=== PATIENT | female | born 1965 | race African-American/Black ===

== ENCOUNTER 2021-09-21 12:56 | Inpatient (IN) | payer MEDICAID ==
[~2021-09-21] VITALS: Ht 170.2 cm; Wt 64.9 kg
[2021-09-21] VITALS (27 sets, daily range): BP systolic 99–147; BP diastolic 36–83
[2021-09-21] MEDS ORDERED: KETOROLAC 15MG/ML VIAL IV ONE (13:15)
[2021-09-21] MEDS ORDERED: SODIUM CHLORIDE 0.9% 500 ML IV ONE (13:15)
[2021-09-21 13:43] LABS: BASOPHILS % 0.3 % (0.0-2.0); EOSINOPHILS % 0.9 % (0.0-5.0); HEMATOCRIT. 37.6 % (36.0-48.0); HEMOGLOBIN. 12.9 g/dL (12.0-16.0); LYMPHOCYTES % 22.5 % (20.0-50.0); MEAN CORPUSCULAR HEMOGLOBIN 29.6 pg (28.0-32.0); MEAN CORPUSCULAR VOLUME 86.3 fL (81.0-99.0); MEAN PLATELET VOLUME 8.5 fl (7.4-10.4); MONOCYTES % 4.3 % (2.0-8.0); PLATELET 179 x1000/uL (130-400); RED BLOOD CELL COUNT 4.36 mill/uL (4.2-5.4); RED CELL DISTRIBUTION WIDTH 13.7 % (11.6-14.6)
[2021-09-21 13:49] LABS: CHLORIDE 109 mEq/L (98-107)
[2021-09-21] MEDS ORDERED: NICARDIPINE 100 MG in SODIUM CHLORIDE 0.9% 60 ML IV PRN ×2 (14:45→15:00)
[2021-09-21] MEDS ORDERED: LEVETIRACETAM 500MG PREMIX 100 ML IV NR (15:00)
[2021-09-21] MEDS ORDERED: IPRATROPIUM/ALBUTEROL 0.5-3(2.5)MG/3ML NEB NEB PRN (16:30)
[2021-09-21] MEDS ORDERED: NITROGLYCERIN 0.4MG TABLET SL SL PRN (16:30)
[2021-09-21] MEDS ORDERED: ONDANSETRON HCL 4MG/2ML INJ IV PRN (16:30)
[2021-09-21] MEDS ORDERED: ACETAMINOPHEN 325MG TABLET PO PRN (16:30)
[2021-09-21] MEDS: DEXT 5%/LACTATED RINGERS 1,000 ML IV SCH (18:12)
[2021-09-21] MEDS ORDERED: IOHEXOL-350 100 ML BOTTLE ONE (19:48)
[2021-09-21] MEDS ORDERED: NALOXONE HCL 0.4MG/ML VIAL IV PRN (20:00)
[2021-09-21] MEDS: MORPHINE SULFATE 2 MG/ML CPJ (NOT FOR IM USE) IV PRN (20:17)
[2021-09-21] MEDS: LEVETIRACETAM 250 MG in SODIUM CHLORIDE 0.9% 100 ML IV SCH (22:44)
[2021-09-21 23:24] LABS: CREATINE KINASE 35 IU/L (26-192)
[2021-09-21 23:25] LABS: CREATINE KINASE MB FRACTION < 1.0 ng/mL (0.5-3.6)
[2021-09-22] VITALS (64 sets, daily range): BP systolic 96–166; BP diastolic 49–82
[2021-09-22 05:49] LABS: CHLORIDE 110 mEq/L (98-107)
[2021-09-22 05:52] LABS: BASOPHILS % 0.4 % (0.0-2.0); EOSINOPHILS % 1.7 % (0.0-5.0); HEMOGLOBIN. 12.4 g/dL (12.0-16.0); LYMPHOCYTES % 30.7 % (20.0-50.0); MEAN CORPUSCULAR HEMOGLOBIN 29.5 pg (28.0-32.0); MEAN CORPUSCULAR VOLUME 85.2 fL (81.0-99.0); MONOCYTES % 6.4 % (2.0-8.0); NEUTROPHILS % 60.8 % (40.0-76.0); PLATELET 179 x1000/uL (130-400); RED BLOOD CELL COUNT 4.22 mill/uL (4.2-5.4); RED CELL DISTRIBUTION WIDTH 13.7 % (11.6-14.6)
[2021-09-22 05:59] LABS: CREATINE KINASE 30 IU/L (26-192)
[2021-09-22 06:00] LABS: CREATINE KINASE MB FRACTION < 1.0 ng/mL (0.5-3.6)
[2021-09-22 06:03] LABS: PHOSPHORUS 3.9 mg/dL (2.5-4.9)
[2021-09-22] MEDS: DEXT 5%/LACTATED RINGERS 1,000 ML IV SCH ×2 (08:59→19:30)
[2021-09-22] MEDS: PANTOPRAZOLE SODIUM 40 MG/VIAL IV SCH (08:59)
[2021-09-22] MEDS: ACETAMINOPHEN 325MG TABLET PO PRN (09:00)
[2021-09-22] MEDS: LEVETIRACETAM 250 MG in SODIUM CHLORIDE 0.9% 100 ML IV SCH ×2 (10:40→23:06)
[2021-09-22] MEDS ORDERED: CLONIDINE 0.1MG TABLET PO PRN (12:00)
[2021-09-22] MEDS ORDERED: GADOTERATE MEGLUMINE 5 MMOL/10 ML VIAL IV ONE (19:05)
[2021-09-22] MEDS: LISINOPRIL 20MG TABLET PO SCH (20:53)
[2021-09-22] MEDS: MORPHINE SULFATE 2 MG/ML CPJ (NOT FOR IM USE) IV PRN (20:53)
[2021-09-23] VITALS (46 sets, daily range): BP systolic 86–139; BP diastolic 30–76
[2021-09-23] MEDS: MORPHINE SULFATE 2 MG/ML CPJ (NOT FOR IM USE) IV PRN (03:42)
[2021-09-23] MEDS ORDERED: NORCO (06:10)
[2021-09-23] MEDS ORDERED: METF-874 MT (06:10)
[2021-09-23] MEDS ORDERED: DULO30CA52 PO (06:10)
[2021-09-23] MEDS ORDERED: GABA-529 PO (06:10)
[2021-09-23] MEDS: LISINOPRIL 20MG TABLET PO SCH ×2 (08:48→21:00)
[2021-09-23] MEDS: PANTOPRAZOLE SODIUM 40 MG/VIAL IV SCH (08:48)
[2021-09-23] MEDS: LEVETIRACETAM 250 MG in SODIUM CHLORIDE 0.9% 100 ML IV SCH ×2 (09:10→21:45)
[2021-09-23] MEDS: DEXT 5%/LACTATED RINGERS 1,000 ML IV SCH ×2 (09:10→21:50)
[2021-09-23] MEDS: ATORVASTATIN CALCIUM 20MG TABLET PO SCH (21:45)
[2021-09-24] VITALS (30 sets, daily range): BP systolic 95–160; BP diastolic 45–92
[2021-09-24] MEDS: ACETAMINOPHEN 325MG TABLET PO PRN ×2 (04:26→08:24)
[2021-09-24 06:21] LABS: CHLORIDE 110 mEq/L (98-107)
[2021-09-24] MEDS: PANTOPRAZOLE SODIUM 40 MG/VIAL IV SCH (08:23)
[2021-09-24] MEDS: LISINOPRIL 20MG TABLET PO SCH ×3 (08:26→21:29)
[2021-09-24] MEDS: LEVETIRACETAM 250 MG in SODIUM CHLORIDE 0.9% 100 ML IV SCH ×2 (08:27→22:08)
[2021-09-24] MEDS: DEXT 5%/LACTATED RINGERS 1,000 ML IV SCH (12:00)
[2021-09-24] MEDS: ATORVASTATIN CALCIUM 20MG TABLET PO SCH (21:26)
[2021-09-25] VITALS: BP 138/76
[2021-09-25] MEDS: DEXT 5%/LACTATED RINGERS 1,000 ML IV SCH ×2 (00:13→13:59)
[2021-09-25 04:00] VITALS: BP 105/52
[2021-09-25 08:00] VITALS: BP 128/70
[2021-09-25] MEDS: PANTOPRAZOLE SODIUM 40 MG/VIAL IV SCH (08:49)
[2021-09-25] MEDS: LEVETIRACETAM 500MG/5ML CUP PO SCH ×2 (08:49→21:39)
[2021-09-25] MEDS: LISINOPRIL 20MG TABLET PO SCH ×2 (08:49→21:39)
[2021-09-25] MEDS: MORPHINE SULFATE 2 MG/ML CPJ (NOT FOR IM USE) IV PRN ×2 (08:50→23:07)
[2021-09-25] MEDS ORDERED: POTASSIUM CHLORIDE 20MEQ TABLET SR PO NR (09:15)
[2021-09-25 12:00] VITALS: BP 135/75
[2021-09-25 16:00] VITALS: BP 106/48
[2021-09-25 20:00] VITALS: BP 132/51
[2021-09-25] MEDS: ATORVASTATIN CALCIUM 20MG TABLET PO SCH (21:39)
[2021-09-26] VITALS: BP 141/61
[2021-09-26] MEDS ORDERED: POTASSIUM CHLORIDE 20MEQ TABLET SR PO NR (02:15)
[2021-09-26] MEDS: DEXT 5%/LACTATED RINGERS 1,000 ML IV SCH ×2 (02:57→15:53)
[2021-09-26 04:00] VITALS: BP 123/54
[2021-09-26 08:00] VITALS: BP 117/48
[2021-09-26 08:24] LABS: BASOPHILS % 0.4 % (0.0-2.0); EOSINOPHILS % 3.7 % (0.0-5.0); HEMATOCRIT. 36.8 % (36.0-48.0); MEAN CORPUSCULAR HEMOGLOBIN 29.9 pg (28.0-32.0); MEAN CORPUSCULAR VOLUME 84.4 fL (81.0-99.0); MEAN PLATELET VOLUME 8.9 fl (7.4-10.4); MONOCYTES % 9.3 % (2.0-8.0); NEUTROPHILS % 52.6 % (40.0-76.0); PLATELET 177 x1000/uL (130-400); RED BLOOD CELL COUNT 4.36 mill/uL (4.2-5.4); RED CELL DISTRIBUTION WIDTH 13.1 % (11.6-14.6)
[2021-09-26 08:30] LABS: CHLORIDE 111 mEq/L (98-107)
[2021-09-26] MEDS: PANTOPRAZOLE SODIUM 40 MG/VIAL IV SCH (09:38)
[2021-09-26] MEDS: LEVETIRACETAM 500MG/5ML CUP PO SCH (09:39)
[2021-09-26] MEDS: LISINOPRIL 20MG TABLET PO SCH (09:39)
[2021-09-26 11:18] VITALS: BP 117/48
[2021-09-26 12:00] VITALS: BP 113/50
== END 2021-09-26 17:10 | disposition home or self-care (01) | DRG 44 ==
LOC: ER 12:56 → EDBEDREQSVC 14:39 → EDBEDREQ 15:31 → MICUSO 15:31 → EDBEDREQTM 15:34 → EDBEDREQ 15:34 → ENRESERV 16:19 → 8WST 09-24 14:07
PROVIDERS: ADMIT Internal Medicine; ATTEND Internal Medicine
DX: I62.9 Nontraumatic intracranial hemorrhage, unspecified (principal); E44.1 Mild protein-calorie malnutrition; E83.51 Hypocalcemia; G81.90 Hemiplegia, unspecified affecting unspecified side; I10 Essential (primary) hypertension; Z20.822 Contact with and (suspected) exposure to COVID-19; E11.9 Type 2 diabetes mellitus without complications; R07.89 Other chest pain; Z68.22 Body mass index [BMI] 22.0-22.9, adult
CPT/HCPCS: 36415; 70496; 70498; 70553; 71045; 72141; 72146; 72148; 80048; 80053; 80061; 82550; 82553; 83036; 83735; 83880; 84100; 84484; 85025; 87426; 93005; 93970; 97162; 97166; 99285; A9577; C9113; J1953; J2270; J3490; J7040; J7050; J7070; Q9967